=== PATIENT | female | born 1950 | race Caucasian/White ===

== ENCOUNTER → 2016-12-20 | Outpatient (CLI) | payer MEDICARE, BC ==
[~2016-12-20] MED LIST: ARMOUR THYROID60 M1 PO; CALCIUM 5001 TAB PO; CENTRUM240 ML PO; LOW DOSE ASPIRI81 M2 PO; MAGNESIUM250 M1 PO; MILK THISTLE150 MG PO; NATURAL VITA400 UNI2 PO; PREMARIN VAG CR45 GM MC; PROBIOTIC1 EACH PO; SYNTHROID PO
--- NOTE | ~2016-12-20 | MY29 ---
[facility] A Service of [facility] RADIOLOGY TEXT RESULTS PATIENT: ABEL HARVEY LOCATION: [facility] : 52 UNIT #: [id number] AGE: [address]: Valarie Banks MD SEX: F ORDER DR: [id number] [facility] [address] [place], [place] [address] [id number] O MR#: [id number] Acc #: [id number] NAME: ABEL HARVEY : 1950 SEX: F STUDY DATE/TIME: 12/20/2016 7:34 UNIT: [facility] ROOM: STUDY DESCRIPTION: MY ANA CRISTINA SCREENING W/ CAD BILAT Attending Physician: Valarie Banks M.D. Referring Physician: Valarie Banks M.D. Ordering Physician: Valarie Banks M.D. Primary Care Physician: Valarie Banks M.D. MEDICAL IMAGING REPORT This report is preliminary unless electronic signature is present EXAM Digital screening mammogram, 12/20/2016, [facility]. HISTORY 66-year-old woman; no risk elevation. Previous stereotactic-guided right breast biopsy. Hormone replacement x 3 years. Annual screening. COMPARISON Comparison mammograms date to 03/24/2007, with most recent 12/19/2015. FINDINGS Digital imaging of each breast was completed utilizing screening protocol. Review includes FDA-approved CAD device. Breast parenchyma remains dense with a small generalized nodular pattern. Subareolar duct prominence is stable bilaterally. Image-guided biopsy marker projects upper outer posterior third right breast. There is no interval occurring breast mass. I see no suspicious microcalcifications and no architectural deformity. IMPRESSION Benign mammogram. Annual screening recommended. Patients over the age of 40 are entered into a reminder system with target due date for the next mammogram. A result letter will also be sent to the patient. BIRADS: 2 Benign finding. Dictated by... Ian Hopkins M.D. THIS IS AN ELECTRONICALLY VERIFIED REPORT [facility] A Service of [facility] RADIOLOGY TEXT RESULTS PATIENT: ABEL HARVEY LOCATION: [facility] #: [id number] : 52 UNIT #: [id number] AGE: [address]: Valarie Banks MD SEX: F ORDER DR: Ian Hopkisn M.D. at 12/20/2016 3:51 PM Ismael TD: 12/20/2016 15:06 JOB #: [id number] MEDICAL IMAGING REPORT Page 1 of 1 COPY
== END | disposition home or self-care (01) ==
LOC: CWCC 07:14
DX: Z12.31 Encounter for screening mammogram for malignant neoplasm of breast (principal); Z79.890 Hormone replacement therapy; Z98.890 Other specified postprocedural states
CPT/HCPCS: G0202